=== PATIENT | female | born 1935 | race Caucasian/White ===

== ENCOUNTER 2023-03-09 10:31 | Inpatient (IN) ==
[2023-03-09 12:31] LABS: ABS Basophils 0.1 10^3/uL (0.0-0.1); ABS Lymphocytes 2.4 10^3/uL (1.0-4.8); ABS Monocytes 1.5 10^3/uL (0.0-0.9); ABS Nucleated RBC 0.01 10^3/ul; Hematocrit 29.6 % (35-45); Hemoglobin 9.9 g/dL (11.5-14.3); Lymphocyte % 20.1 %; Mean Corpuscular Hemoglobin 28.9 pg (27-33); Mean Corpuscular Hgb Conc 33.5 g/dL (31-36); Mean Platelet Volume 8.3 fL (7.5-11.2); Nucleated Red Blood Cells % 0.1 /100 WBC (0.0-0.4); Platelet Count 236 10^3/uL (150-450); Red Blood Count 3.44 10^6/uL (3.63-4.92); Red Cell Distribution Width 15.9 % (12-17); White Blood Count 12.1 10^3/uL (3.8-11.8)
[2023-03-09 12:48] LABS: Albumin 3.7 g/dL (3.2-5.2); Albumin/Globulin Ratio 1.4 (1-3); C Reactive Protein 5.74 mg/L (<8.01); Calcium 9.1 mg/dL (8.6-10.3); Creatinine, Serum 1.44 mg/dL (0.51-0.95); Globulin 2.6 g/dL (2-4); Magnesium 2.3 mg/dL (1.9-2.7); Potassium 4.6 mmol/L (3.5-5.0); Total Bilirubin 0.5 mg/dL (0.2-1.0); Total Protein 6.3 g/dL (6.4-8.9)
[2023-03-09] MEDS ORDERED: NS 0.9% 1000 ml BAG 1,000 ML IV ONE (12:53)
[2023-03-09] MEDS ORDERED: Iodixanol (CONTRAST) 320 MG/ML 100 ML SDV IV ONE (12:59)
[2023-03-09] MEDS ORDERED: Furosemide 40 mg/4 ml IV VIAL IV ONE (14:46)
[2023-03-09] MEDS ORDERED: Enoxaparin 40 MG/0.4 ML SYR SUBCUT SCH ×2 (17:00→18:15)
[2023-03-09 17:19] LABS: Osmolality Serum 275 mOsm/kg (275-295)
[2023-03-09] MEDS: Enoxaparin 30 MG/0.3 ML SYR SUBCUT SCH (18:52)
[2023-03-09] MEDS ORDERED: Furosemide 100 mg/10 ml IV 100 MG in NS 0.9% 100 ml BAG 90 ML IV SCH (19:00)
[2023-03-09] MEDS ORDERED: Lorazepam PYXIS KEY PRN (21:01)
[2023-03-09] MEDS ORDERED: LORazepam 2 mg VIAL 1 ml IV PUSH ONE (21:01)
[2023-03-09 21:12] LABS: Urine Appearance Cloudy; Urine Bacteria 3+ (Absent); Urine Bilirubin Negative (Negative); Urine Blood Negative (Negative); Urine Color Yellow; Urine Glucose Negative (Negative); Urine Ketones Negative (Negative); Urine Nitrite Negative (Negative); Urine Protein 1+(30 mg/dL) (Negative); Urine Red Blood Cell Trace(0-2/hpf) (Absent); Urine Specific Gravity 1.018 (1.002-1.030); Urine Urobilinogen Negative (Negative); Urine White Blood Cell Trace(0-5/hpf) (Absent)
[2023-03-09 21:49] LABS: Urine Appearance Clear; Urine Bilirubin Negative (Negative); Urine Blood Negative (Negative); Urine Color Yellow; Urine Glucose Negative (Negative); Urine Ketones Negative (Negative); Urine Nitrite Negative (Negative); Urine Protein 2+(100 mg/dL) (Negative); Urine Specific Gravity 1.019 (1.002-1.030); Urine Urobilinogen Negative (Negative)
[2023-03-09 21:59] LABS: Urine Bacteria 1+ (Absent); Urine Red Blood Cell Absent (Absent); Urine Squamous Epithelial Cell Present (Absent); Urine White Blood Cell Absent (Absent)
[2023-03-10 02:09] LABS: Calcium 8.8 mg/dL (8.6-10.3); Creatinine, Serum 1.5 mg/dL (0.51-0.95); Potassium 4.3 mmol/L (3.5-5.0); eGFR CKD-EPI 33.3 (>60)
[2023-03-10 05:31] LABS: ABS Basophils 0.1 10^3/uL (0.0-0.1); ABS Lymphocytes 1.4 10^3/uL (1.0-4.8); ABS Monocytes 0.9 10^3/uL (0.0-0.9); ABS Neutrophils 6.2 10^3/uL (1.5-7.6); ABS Nucleated RBC 0.01 10^3/ul; Hematocrit 27.3 % (35-45); Hemoglobin 9.6 g/dL (11.5-14.3); Lymphocyte % 16.5 %; Mean Corpuscular Hgb Conc 35.2 g/dL (31-36); Mean Corpuscular Volume 85.2 fL (80-97); Mean Platelet Volume 8.7 fL (7.5-11.2); Nucleated Red Blood Cells % 0.1 /100 WBC (0.0-0.4); Platelet Count 190 10^3/uL (150-450); Red Blood Count 3.21 10^6/uL (3.63-4.92); Red Cell Distribution Width 16.1 % (12-17); White Blood Count 8.5 10^3/uL (3.8-11.8)
[2023-03-10 05:48] LABS: Calcium 8.4 mg/dL (8.6-10.3); Creatinine, Serum 1.63 mg/dL (0.51-0.95); Magnesium 2.1 mg/dL (1.9-2.7); Potassium 4.4 mmol/L (3.5-5.0); eGFR CKD-EPI 30.1 (>60)
[2023-03-10] MEDS: Levothyroxine 100 MCG/5 ML VIAL IV SCH (09:07)
[2023-03-10] MEDS: Furosemide 100 mg/10 ml IV 100 MG in NS 0.9% 100 ml BAG 90 ML IV SCH ×2 (09:15→13:08)
[2023-03-10] MEDS ORDERED: Acetaminophen IV 1 GM/100ML 1,000 MG/100 ML BAG IV PRN (10:54)
[2023-03-10 11:55] LABS: PCO2 Arterial 34 mmHg (35-45); PO2 Arterial 89 mmHg (80-100)
[2023-03-10 12:39] LABS: TSH Ultra Thyroid Stim Horm 8.72 mcIU/mL (0.34-5.60)
[2023-03-10 12:40] LABS: Free T4 1.23 ng/dL (0.61-1.12)
[2023-03-10 13:54] LABS: Calcium 8.8 mg/dL (8.6-10.3); Creatinine, Serum 1.6 mg/dL (0.51-0.95); Potassium 3.9 mmol/L (3.5-5.0); eGFR CKD-EPI 30.8 (>60)
[2023-03-10] MEDS ORDERED: Magnesium Sulfate 2 gm BAG 2 GM/50 ML BAG IVPB ONE (16:50)
[2023-03-10] MEDS: Enoxaparin 30 MG/0.3 ML SYR SUBCUT SCH (17:54)
[2023-03-10] MEDS ORDERED: LORazepam 2 mg VIAL 1 ml IV PUSH ONE (19:06)
[2023-03-10] MEDS ORDERED: Lorazepam PYXIS KEY PRN (19:06)
[2023-03-10 20:02] LABS: Calcium 9.2 mg/dL (8.6-10.3); Creatinine, Serum 1.53 mg/dL (0.51-0.95); Potassium 3.6 mmol/L (3.5-5.0); eGFR CKD-EPI 32.5 (>60)
[2023-03-11 05:40] LABS: ABS Basophils 0.1 10^3/uL (0.0-0.1); ABS Lymphocytes 1.1 10^3/uL (1.0-4.8); ABS Monocytes 0.6 10^3/uL (0.0-0.9); ABS Nucleated RBC 0.02 10^3/ul; Eosinophil % 0.1 %; Hematocrit 31.1 % (35-45); Hemoglobin 10.6 g/dL (11.5-14.3); Lymphocyte % 12.6 %; Mean Corpuscular Hemoglobin 29.3 pg (27-33); Mean Corpuscular Hgb Conc 34.1 g/dL (31-36); Mean Corpuscular Volume 85.8 fL (80-97); Mean Platelet Volume 8.5 fL (7.5-11.2); Nucleated Red Blood Cells % 0.2 /100 WBC (0.0-0.4); Platelet Count 205 10^3/uL (150-450); Red Blood Count 3.63 10^6/uL (3.63-4.92); White Blood Count 8.8 10^3/uL (3.8-11.8)
[2023-03-11 05:54] LABS: Magnesium 2.7 mg/dL (1.9-2.7)
[2023-03-11] MEDS: Levothyroxine 100 MCG/5 ML VIAL IV SCH (06:28)
[2023-03-11 06:38] LABS: Calcium 9.1 mg/dL (8.6-10.3); Creatinine, Serum 1.52 mg/dL (0.51-0.95); Potassium 3.6 mmol/L (3.5-5.0); eGFR CKD-EPI 32.8 (>60)
[2023-03-11] MEDS ORDERED: Sulfur Hexaflouride MICROSPHR 25 MG VIAL ONE (09:14)
[2023-03-11] MEDS: KCL 20 MEQ/100 ML IVPREMIX 20 MEQ/100 ML BAG IV SCH ×2 (09:24→12:39)
[2023-03-11] MEDS ORDERED: Senna TAB 8.6 mg TAB PO PRN (09:52)
[2023-03-11] MEDS ORDERED: .Amiodarone 24HR ONLY IV Protocol Order Note IV ONE (10:22)
[2023-03-11] MEDS ORDERED: Amiodarone 360 MG IVPREMIX 360 MG/200 ML BAG IV SCH (10:35)
[2023-03-11] MEDS: Polyethylene Glycol 3350 17 GM PACKET PO SCH (11:23)
[2023-03-11 13:06] LABS: CKMB ng/mL 3.3 ng/mL (0.6-6.3)
[2023-03-11] MEDS: Enoxaparin 60 MG/0.6 ML SYR SUBCUT SCH (13:44)
[2023-03-11 14:21] LABS: High Sensitivity Troponin 1 Hr 470 pg/mL (<15)
[2023-03-11] MEDS: Amiodarone 360 MG IVPREMIX 360 MG/200 ML BAG IV SCH (16:11)
[2023-03-11 16:26] LABS: Calcium 8.9 mg/dL (8.6-10.3); Creatinine, Serum 1.42 mg/dL (0.51-0.95); Potassium 4.4 mmol/L (3.5-5.0); eGFR CKD-EPI 35.6 (>60)
[2023-03-11 16:33] LABS: High Sensitivity Troponin 3 Hr 411 pg/mL (<15)
[2023-03-11 16:48] LABS: Ferritin 1224.2 ng/mL (11-307)
[2023-03-11] MEDS ORDERED: Iron Sucrose 200 MG in NS 0.9% 100 ml BAG 100 ML IVPB ONE (17:42)
[2023-03-12 00:37] LABS: Calcium 8.7 mg/dL (8.6-10.3); Creatinine, Serum 1.32 mg/dL (0.51-0.95); Potassium 3.7 mmol/L (3.5-5.0); eGFR CKD-EPI 38.8 (>60)
[2023-03-12 04:14] LABS: ABS Monocytes 0.6 10^3/uL (0.0-0.9); ABS Neutrophils 5.1 10^3/uL (1.5-7.6); ABS Nucleated RBC 0.02 10^3/ul; Eosinophil % 0.2 %; Hematocrit 27.9 % (35-45); Hemoglobin 9.8 g/dL (11.5-14.3); Lymphocyte % 14.5 %; Mean Corpuscular Hemoglobin 29.9 pg (27-33); Mean Corpuscular Hgb Conc 35.2 g/dL (31-36); Mean Platelet Volume 8.7 fL (7.5-11.2); Nucleated Red Blood Cells % 0.3 /100 WBC (0.0-0.4); Platelet Count 195 10^3/uL (150-450); Red Blood Count 3.28 10^6/uL (3.63-4.92); Red Cell Distribution Width 16.1 % (12-17); White Blood Count 6.8 10^3/uL (3.8-11.8)
[2023-03-12] MEDS: Amiodarone 360 MG IVPREMIX 360 MG/200 ML BAG IV SCH (04:16)
[2023-03-12 04:29] LABS: Magnesium 2.3 mg/dL (1.9-2.7); Phosphorus 2.4 mg/dL (2.5-5.0)
[2023-03-12] MEDS: Furosemide 40 mg/4 ml IV VIAL IV SCH ×2 (05:57→16:58)
[2023-03-12] MEDS ORDERED: Potassium Chloride LIQUID 20 MEQ/15 ML LIQUID PO ONE (08:47)
[2023-03-12] MEDS: Polyethylene Glycol 3350 17 GM PACKET PO SCH (09:00)
[2023-03-12] MEDS: cefTRIAXone 1 gm/50 mL D5W 1 GM/50 ML BAG IV SCH (11:24)
[2023-03-12] MEDS: Amiodarone 400 mg TAB PO SCH ×2 (12:40→23:29)
[2023-03-12] MEDS: Enoxaparin 60 MG/0.6 ML SYR SUBCUT SCH (13:29)
[2023-03-12] MEDS ORDERED: Amiodarone 400 mg TAB PO SCH (21:00)
[2023-03-13] MEDS: Furosemide 40 mg/4 ml IV VIAL IV SCH ×2 (05:20→17:00)
[2023-03-13 06:15] LABS: ABS Eosinophils 0.1 10^3/uL (0.0-0.5); ABS Lymphocytes 1.3 10^3/uL (1.0-4.8); ABS Monocytes 0.8 10^3/uL (0.0-0.9); ABS Nucleated RBC 0.03 10^3/ul; Hematocrit 30.6 % (35-45); Hemoglobin 10.5 g/dL (11.5-14.3); Lymphocyte % 21.3 %; Mean Corpuscular Hemoglobin 29.5 pg (27-33); Mean Corpuscular Hgb Conc 34.3 g/dL (31-36); Mean Corpuscular Volume 86.1 fL (80-97); Mean Platelet Volume 8.4 fL (7.5-11.2); Nucleated Red Blood Cells % 0.5 /100 WBC (0.0-0.4); Platelet Count 226 10^3/uL (150-450); Red Blood Count 3.56 10^6/uL (3.63-4.92); Red Cell Distribution Width 15.9 % (12-17); White Blood Count 6.1 10^3/uL (3.8-11.8)
[2023-03-13 06:31] LABS: Calcium 8.5 mg/dL (8.6-10.3); Creatinine, Serum 1.32 mg/dL (0.51-0.95); Magnesium 1.8 mg/dL (1.9-2.7); Potassium 4.1 mmol/L (3.5-5.0); eGFR CKD-EPI 38.8 (>60)
[2023-03-13] MEDS: Amiodarone 400 mg TAB PO SCH ×2 (08:32→17:00)
[2023-03-13] MEDS: Polyethylene Glycol 3350 17 GM PACKET PO SCH (08:34)
[2023-03-13] MEDS: cefTRIAXone 1 gm/50 mL D5W 1 GM/50 ML BAG IV SCH (09:20)
[2023-03-13] MEDS: Dextran 70/Hypromellose Tears Eye Drops 15 ml BTL (for Artificials Tears) BOTH EYES PRN (19:30)
[2023-03-14] MEDS: Dextran 70/Hypromellose Tears Eye Drops 15 ml BTL (for Artificials Tears) BOTH EYES PRN ×3 (01:10→10:37)
[2023-03-14 07:46] LABS: Calcium 8.4 mg/dL (8.6-10.3); Creatinine, Serum 1.23 mg/dL (0.51-0.95); Magnesium 1.9 mg/dL (1.9-2.7); Potassium 4.4 mmol/L (3.5-5.0); eGFR CKD-EPI 42.3 (>60)
[2023-03-14] MEDS: Amiodarone 400 mg TAB PO SCH ×2 (08:37→17:05)
[2023-03-14] MEDS: Polyethylene Glycol 3350 17 GM PACKET PO SCH (08:50)
[2023-03-14] MEDS: cefTRIAXone 1 gm/50 mL D5W 1 GM/50 ML BAG IV SCH (10:37)
[2023-03-14 14:24] VITALS: BP 94/57
== END 2023-03-14 18:35 | disposition home or self-care (01) | DRG 291 ==
LOC: ED 10:31 → EDHOLD 10:31 → SUATTDRO 16:08 → OBSVTOIN 16:08 → ICU 17:17 → MED 03-12 17:40
PROVIDERS: ADMIT Hospitalist; ATTEND Internal Medicine